=== PATIENT | female | born 1955 | race Caucasian/White ===

== ENCOUNTER 2022-04-10 19:53 | Emergency (ER) | payer MEDICARE, MEDICAID, SELFPAY ==
[2022-04-10] VITALS (16 sets, daily range): BP systolic 121–142; BP diastolic 62–102; PULSE 68–88; RESP 16–18; TEMP 37; O2SAT 93–100
--- NOTE | ~2022-04-10 | XR_ITS ---
EXAM: XR elbow RT min 3V DATE: 04/10/2022 20:16 HISTORY: fall/ swelling/injury, Rt elbow . COMPARISON: None available. FINDINGS: Decreased mineralization. Severe degenerative change in the right elbow, with a loose join t body in the anterior joint recess. Likely old radial head/neck fracture healed in slight deformity. Oblique posteriorly displaced distal right humeral metaphyseal fracture. Large right elbow joint eff usion. IMPRESSION: Oblique, posteriorly displaced right distal humeral metaphyseal fracture. Reviewed, dictated and finalized at [facility]. IMPRESSION: Oblique, posteriorly displaced right distal humeral metaphyseal fra cture.
--- NOTE | 2022-04-10 19:48 | ED.UPPEXIN ---
HPI - Extremity Injury (Upper) General Chief Complaint: Extremity Injury, Upper Stated Complaint: FALL/UPPER EXTREMITY Source: patient, EMS and RN notes reviewed Mode of arrival: EMS Limitations: no limitations History of Present Illness HPI narrative: 66 years old white female had a fall at the [facility], slipped on the floor, water. Landed on the right elbow, denies other injuries. Patient on Eliquis for atrial fibrillation, oxygen by nasal cannula at 2 L/min nightly, patient walks with a walker MD complaint: injury to: right and elbow Related Data Home Medications Medication Instructions Recorded Confirmed aripiprazole 15 mg tablet (Abilify) 15 mg PO DAILY 10/10/19 03/02/20 aspirin 81 mg tablet,delayed 81 mg PO DAILY 10/10/19 03/02/20 release (Adult Aspirin Regimen) diltiazem HCl 240 mg 240 mg PO DAILY 10/10/19 03/02/20 capsule,extended release 24 hr, controlled docusate sodium 100 mg tablet 100 mg PO DAILY 10/10/19 03/02/20 famotidine 40 mg tablet 40 mg PO DAILY 10/10/19 03/02/20 furosemide 40 mg tablet (Lasix) 40 mg PO QAM 10/10/19 03/02/20 montelukast 10 mg tablet 10 mg PO DAILY 10/10/19 03/02/20 acetaminophen 325 mg capsule 325 mg PO Q6H PRN 10/11/19 03/02/20 (Tylenol) apixaban 5 mg tablet (Eliquis) 5 mg PO BID 10/11/19 03/02/20 aripiprazole lauroxil 662 mg/2.4 662 mg IM MONTHLY 10/11/19 03/02/20 mL suspension, ext.rel. IM syringe ([place]) blood sugar diagnostic (Accu-Chek #10 ea 10/11/19 03/02/20 Elva Plus test strips) budesonide-formoterol HFA 160 2 puff inhalation Q12H 10/11/19 03/02/20 mcg-4.5 mcg/actuation aerosol inhaler (Symbicort) calcium carbonate 600 mg calcium 600 mg PO BID 10/11/19 03/02/20 (1,500 mg) tablet duloxetine 60 mg capsule,delayed 60 mg PO BID 10/11/19 03/02/20 release (Cymbalta) fluticasone propionate 50 2 spray intranasal DAILY 10/11/19 03/02/20 mcg/actuation nasal spray,suspension ibuprofen 400 mg tablet 400 mg PO TID 10/11/19 03/02/20 insulin aspart U-100 100 unit/mL 5 unit subcut TID 10/11/19 03/02/20 (3 mL) subcutaneous pen (Novolog Flexpen U-100 Insulin aspart) insulin glargine 100 unit/mL (3 30 unit subcut DAILY 10/11/19 03/02/20 mL) subcutaneous pen (Lantus Solostar U-100 Insulin) ipratropium 0.5 mg-albuterol 3 mg 3 ml inhalation QID PRN 10/11/19 03/02/20 (2.5 mg base)/3 mL nebulization soln lidocaine 5 % topical patch 1 patch topical DAILY 10/11/19 03/02/20 lorazepam 0.5 mg tablet (Ativan) 0.5 mg PO DAILY PRN 10/11/19 03/02/20 lorazepam 1 mg tablet (Ativan) 1 mg PO BID PRN 10/11/19 03/02/20 lovastatin 40 mg tablet 40 mg PO DAILY 10/11/19 03/02/20 melatonin 5 mg capsule mg PO 10/11/19 03/02/20 metformin 500 mg tablet 500 mg PO BID 10/11/19 03/02/20 oxycodone 5 mg tablet 5 mg PO Q8H PRN 10/11/19 03/02/20 pregabalin 150 mg capsule (Lyrica) 150 mg PO BID 10/11/19 03/02/20 ropinirole 1 mg tablet 1 mg PO BID 10/11/19 03/02/20 zolpidem 5 mg tablet (Ambien) 5 mg PO ONCE 10/11/19 03/02/20 Allergies Allergy/AdvReac Type Severity Reaction Status Date / Time haloperidol Allergy Intermediate Rash Verified 04/10/22 20:54 saccharin Allergy Intermediate Rash Verified 04/10/22 20:54 amoxicillin [From Augmentin] Allergy Unknown unknown Verified 04/10/22 20:54 clavulanic acid Allergy Unknown unknown Verified 04/10/22 20:54 [From Augmentin] AMOXICILLIN TRIHYDRATE Allergy Intermediate RASH Uncoded 05/04/20 14:03 HALOPERIDOL LACTATE Allergy Intermediate Rash Uncoded 05/04/20 14:03 Review of Systems Review of Systems: All systems reviewed & are unremarkable except as noted in HPI and below PMFSH Past Medical History Medical History (Updated 04/10/22 @ 21:20 by Aleida Phan MD) Afib Anxiety Arthritis Asthma Chronic headaches COPD (chronic obstructive pulmonary disease) 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
[2022-04-10] MEDS: ONDANSETRON INJ 4 MG/2 ML VIAL IV PUSH (20:48)
[2022-04-10] MEDS: HYDROmorphone HCL INJ (*CRX) 1 MG/ML SYR 0.5 MG IV PUSH (20:48)
== END 2022-04-10 22:48 | disposition short-term general hospital (02) ==
PROVIDERS: Emergency Provider Emergency Medicine; PCP General Practice
DX: S49.191A Other physeal fracture of lower end of humerus, right arm, initial encounter for closed fracture (principal); I48.91 Unspecified atrial fibrillation; I10 Essential (primary) hypertension; J44.9 Chronic obstructive pulmonary disease, unspecified; Z99.81 Dependence on supplemental oxygen; M19.029 Primary osteoarthritis, unspecified elbow; M79.7 Fibromyalgia; G47.30 Sleep apnea, unspecified; Z79.01 Long term (current) use of anticoagulants; F17.210 Nicotine dependence, cigarettes, uncomplicated; W01.0XXA Fall on same level from slipping, tripping and stumbling without subsequent striking against object, initial encounter
CPT/HCPCS: 29105; 73080; 96374; 96375; 99285; J1170; J2405